=== PATIENT | female | born 1975 | race Caucasian/White ===

== ENCOUNTER 2016-08-07 20:28 | Emergency (ER) | payer BC ==
[2016-08-07 20:37] VITALS: BMI 29.8
--- NOTE | 2016-08-07 21:28 | PDOC ---
History of Present Illness - General History Source: Patient Exam Limitations: No Limitations - History of Present Illness Initial Comments: 08/07/16 21:35 The patient is a 41 year old female with significant past medical history of diabetes who presents to the ED for 4 days of diarrhea. Patient reports having persistent nonbloody diarrhea and today she had about 15 episodes of diarrhea. She also reports diffuse abdominal cramping and nausea, but no vomiting. States having decreased appetite. Denies any sick contacts or recent travels. The patient denies fever, chills, cough, SOB, chest pain, and palpitations. The patient denies dysuria, hematuria, urgency, and frequency. Allergies: codeine Social History: No alcohol, tobacco, or drug use reported. Past Surgical History: tubal ligation PCP: Dr. Artemio Crespo <Wanda Pena - Last Filed: 08/07/16 21:35> - General History Source: Patient <Radhames Sanford - Last Filed: 08/07/16 23:39> - General Chief Complaint: Diarrhea Stated Complaint: STOMACH PAIN,DIARRHEA Time Seen by Provider: 08/07/16 21:28 Past History <Wanda Pena - Last Filed: 08/07/16 21:35> - Past Medical History Diabetes: Yes - Surgical History Abdominal Surgery: Yes (tubilagation) - Psycho/Social/Smoking Cessation Hx Anxiety: No Suicidal Ideation: No Smoking Status: Yes Smoking History: Former smoker Have you smoked in the past 12 months: Yes Number of Cigarettes Smoked Daily: 20 If you are a former smoker, when did you quit?: 12 days ago Information on smoking cessation initiated: No Hx Alcohol Use: No Substance Use Type: None <Radhames Sanford - Last Filed: 08/07/16 23:39> - Past Medical History Allergies/Adverse Reactions: Allergies Allergy/AdvReac Type Severity Reaction Status Date / Time codeine Allergy Verified 08/07/16 20:36 Home Medications: Ambulatory Orders Metformin HCl [Glucophage -] 500 mg PO BID 12/18/12 Janumet Xr 50-500 mg Tablet 500 mg PO BID 08/07/16 Ondansetron [Zofran *Odt*] 4 mg SL TID #30 od.tablet 08/07/16 Review of Systems - Review of Systems Able to Perform ROS?: Yes Comments:: 08/07/16 21:40 CONSTITUTIONAL: +decreased appetite Absent: fever, no chills, no fatigue EYES: Absent: visual changes ENT: Absent: ear pain, no sore throat CARDIOVASCULAR: Absent: chest pain, no palpitations RESPIRATORY: Absent: cough, no SOB GI: +abdominal cramping, nausea Absent: no vomiting, no constipation GENITOURINARY: Absent: dysuria, no frequency, no hematuria MUSCULOSKELETAL: Absent: back pain, no arthralgia, no myalgia SKIN: Absent: rash NEURO: Absent: headache <Wanda Pena - Last Filed: 08/07/16 21:35> *Physical Exam - Vital Signs Last Vital Signs Temp Pulse Resp BP Pulse Ox 98.2 F 86 18 128/78 97 08/07/16 20:34 08/07/16 20:34 08/07/16 20:34 08/07/16 20:34 08/07/16 20:34 - Physical Exam Comments: 08/07/16 21:41 GENERAL: Well-appearing, well-nourished. No apparent distress. HEENT: Normocephalic, atraumatic. PERRL, EOM intact. Moist oral mucosa. CARDIOVASCULAR: Normal S1, S2. Regular rate and rhythm. PULMONARY: Clear to auscultation bilaterally. ABDOMEN: Soft, non-distended, non-tender. No rebound or guarding. Hyperactive bowel sounds. EXTREMITIES: Normal ROM in all four extremities. No gross deformities. SKIN: Warm, dry. No rash NEUROLOGICAL: No focal neurological deficits. <JeanWanda - Last Filed: 08/07/16 21:35> - Vital Signs Last Vital Signs Temp Pulse Resp BP Pulse Ox 98.2 F 86 18 128/78 97 08/07/16 20:34 08/07/16 20:34 08/07/16 20:34 08/07/16 20:34 08/07/16 20:34 <Radhames Sanford - Last Filed: 08/07/16 23:39> ED Treatment Course - LABORATORY CBC & Chemistry Diagram: 08/07/16 21:46 08/07/16 21:40 <Radhames Sanford - Last Filed: 08/07/16 23:39> Medical Decision Making - Medical Decision Making 08/07/16 23:36 Dr. Sanford: The scribe's documentation has been prepared under my direction and personally reviewed by me in its entirery. I confirm that the note above accurately reflects all work, treatment, procedures, and medical decision making performed by me. Patient feels better after IVF hydration. Pt states the diarrhea has decreased. Will discharge. Pt encouraged to drink plenty of fluids. <Radhames Sanford - Last Filed: 08/07/16 23:39> *DC/Admit/Observation/Transfer - Attestations Scribe Attestion: 08/07/16 21:41 Documentation prepared by Wanda Pena, acting as medical coding auditor for Radhames Sanford MD/DO. <Wanda Pena - Last Filed: 08/07/16 21:35> - Discharge Dispostion Admit: No <Radhames Sanford - Last Filed: 08/07/16 23:39> Diagnosis at time of Disposition: Diarrhea Qualifiers: Diarrhea type: unspecified type Qualified Code(s): R19.7 - Diarrhea, unspecified - Discharge Dispostion Disposition: HOME Condition at time of disposition: Improved - Referrals Referrals: Artemio Cagle MD [Primary Care Provider] - - Patient Instructions Printed Discharge Instructions: Diarrhea Additional Instructions: drink plenty of fluids. Eat soft diet and increase as tolerated.
[2016-08-07] MEDS ORDERED: SODIUM CHLORIDE 1,000 ML IV STA ×2 (21:29)
[2016-08-07 21:49] LABS: BASOPHIL 1.4 % (0-2.0); EOSINOPHIL 3.1 % (0-4.5); MCH 29.7 pg (25.7-33.7); MCHC 33.5 g/dl (32.0-36.0); MEAN CELL VOLUME 88.6 fl (80-96); MEAN PLT VOLUME 10.5 fl (7.5-11.1); PLATELET COUNT 181 K/MM3 (134-434); RDW 12.6 % (11.6-15.6); WHITE BLOOD COUNT 8.3 K/mm3 (4.0-10.0)
[2016-08-07 22:52] LABS: ALBUMIN 3.2 g/dl (3.4-5.0); ALK PHOS 64 U/L (45-117); AMYLASE 23 U/L (25-115); ANION GAP 10 (8-16); BILIRUBIN,TOTAL 0.2 mg/dL (0.2-1.0); CALCIUM 8.7 mg/dL (8.5-10.1); CO2 25 mmol/L (21-32); CREATININE 0.6 mg/dL (0.55-1.02); GLUCOSE,RANDOM 284 mg/dL (74-106); SGOT/AST 13 U/L (15-37); SGPT/ALT 28 U/L (12-78); TOT PROT 6.6 g/dl (6.4-8.2)
[2016-08-07 23:10] LABS: URINE APPEARANCE CLEAR; URINE BILIRUBIN NEGATIVE (NEGATIVE); URINE BLOOD NEGATIVE (NEGATIVE); URINE COLOR LTYELLOW; URINE GLUCOSE (UA) 3+ (NEGATIVE); URINE KETONE NEGATIVE (NEGATIVE); URINE LEUK ESTERASE NEGATIVE (NEGATIVE); URINE NITRITE NEGATIVE (NEGATIVE); URINE PROTEIN NEGATIVE (NEGATIVE); URINE UROBILINOGEN NEGATIVE E.U./dl (0.2-1.0)
[2016-08-07 23:38] VITALS: TEMP 98.3
[2016-08-07 23:48] LABS: ACETONE SERUM NEGATIVE (NEGATIVE)
[2016-08-07 23:52] VITALS: BP 109/64; PULSE 69
== END 2016-08-07 23:52 | disposition home or self-care (01) ==
LOC: JER 20:28
PROC: 3E0337Z Introduction of Electrolytic and Water Balance Substance into Peripheral Vein, Percutaneous Approach (ICD-10-PCS; principal; 2016-08-07)
DX: R19.7 Diarrhea, unspecified (principal); Z87.891 Personal history of nicotine dependence
CPT/HCPCS: 36415; 80053; 81003; 82009; 82150; 83690; 83735; 85025; 99283-25

== ENCOUNTER 2016-08-08 10:56 | Emergency (ER) | payer BC ==
[2016-08-08 11:04] VITALS: TEMP 98.1; BMI 29.8
--- NOTE | 2016-08-08 11:48 | PDOC ---
History of Present Illness - General History Source: Patient Exam Limitations: No Limitations - History of Present Illness Initial Comments: 08/08/16 14:33 The patient is a 41 year old female with significant past medical history of diabetes who presents to the ED for left sided abdominal pain, nausea and diarrhea for 5 days. Patient was seen in [facility] yesterday and had blood work done that was normal. Patient states that she has been experiencing the following symptoms today and called her PCP to schedule an appointment and was told to present to the ED and obtain a CT. Patient states that she has been experiencing diarrhea for 5 days which initially was black then yellow and now yellow and watery in color. Patient reports 1-2 episodes of vomiting throughout the 5 days. Patient reports nausea and dizziness. Patient reports mid abdomen pain radiating to the LLQ that is constant with no alleviating or exacerbating factors. She denies relief with bowel movements. Patient reports going to a family BBQ last friday after which she developed symptoms. LMP now. No recent travel or sick contact No abx use The patient denies fever, chills, cough, SOB, chest pain, and palpitations. The patient denies dysuria, hematuria, urgency, and frequency. Allergies: codeine Social History: No alcohol, tobacco, or drug use reported. Past Surgical History: tubal ligation PCP: Dr. Artemio Payne <Inés Lopez - Last Filed: 08/08/16 14:33> <Jalen Roberson - Last Filed: 08/08/16 17:52> - General Chief Complaint: Pain Stated Complaint: PAIN Time Seen by Provider: 08/08/16 11:21 Past History <Inés Lopez - Last Filed: 08/08/16 14:33> - Past Medical History Diabetes: Yes - Surgical History Abdominal Surgery: Yes (tubilagation) - Psycho/Social/Smoking Cessation Hx Anxiety: No Suicidal Ideation: No Smoking Status: Yes Smoking History: Current every day smoker Have you smoked in the past 12 months: Yes Number of Cigarettes Smoked Daily: 20 If you are a former smoker, when did you quit?: 12 days ago Information on smoking cessation initiated: Yes 'Breaking Loose' booklet given: 08/08/16 Hx Alcohol Use: No Drug/Substance Use Hx: No Substance Use Type: None <Karol,Jalen - Last Filed: 08/08/16 17:52> - Past Medical History Allergies/Adverse Reactions: Allergies Allergy/AdvReac Type Severity Reaction Status Date / Time codeine Allergy Verified 08/08/16 11:03 Home Medications: Ambulatory Orders Metformin HCl [Glucophage -] 500 mg PO BID 12/18/12 Janumet Xr 50-500 mg Tablet 500 mg PO BID 08/07/16 Ondansetron [Zofran *Odt*] 4 mg SL TID #30 od.tablet 08/07/16 Ciprofloxacin [Cipro -] 500 mg PO Q12H #10 tablet 08/08/16 Metronidazole [Flagyl -] 500 mg PO TID #21 tablet 08/08/16 Review of Systems - Review of Systems Able to Perform ROS?: Yes Comments:: 08/08/16 14:33 CONSTITUTIONAL: No reported: Fever, Chills, Diaphoresis, Generalized Weakness, Malaise, Loss of Appetite HEENT: No reported: Rhinorrhea, Nasal Congestion, Throat Pain, Throat Swelling, Difficulty Swallowing, Mouth Swelling, Ear Pain, Eye Pain, Visual Changes CARDIOVASCULAR: No reported: Chest Pain, Syncope, Palpitations, Irregular Heart Rate, Lightheadedness, Peripheral Edema RESPIRATORY: No reported: Cough, Shortness of Breath, SOB with Exertion, Orthopnea, Wheezing , Stridor, Hemoptysis GASTROINTESTINAL: Reported: abdominal pain, nausea, diarrhea No reported: Abdominal Distension,Vomiting,Constipation, Melena, Hematochezia GENITOURINARY: No reported: Dysuria, Frequency, Urgency, Hesitancy, Flank Pain, Genital Pain MUSCULOSKELETAL: No reported: Myalgia, Arthralgia, Joint Swelling, Back pain, Neck Pain SKIN: No reported: Rash, Itching, Pallor HEMEATOLOGIC/IMMUNOLOGIC: No reported: Easy Bleeding, Easy Bruising, Lymphadenopathy, Frequent infections ENDOCRINE: No reported: Unexplained Weight Gain, Unexplained Weight Loss, Heat Intolerance , Cold Intolerance NEUROLOGIC: No reported: Headache, Focal Weakness, Paresthesias, Vertigo, Lightheadedness, Unsteady Gait, Seizure, Mental Status Changes, Incontinence PSYCHIATRIC: No reported: Anxiety, Depression <Inés Lopez - Last Filed: 08/08/16 14:33> *Physical Exam - Vital Signs Last Vital Signs Temp Pulse Resp BP Pulse Ox 98.1 F 72 18 124/69 98 08/08/16 11:02 08/08/16 11:02 08/08/16 11:02 08/08/16 11:02 08/08/16 11:02 - Physical Exam Comments: 08/08/16 14:33 GENERAL: The patient is awake, alert, and fully oriented, Nontoxic - in no acute distress. HEAD: Normocephalic, atraumatic. EYES: extraocular movements intact, sclera anicteric, conjunctiva clear. ENT: Normal voice, Moist mucous membranes. NECK: Normal range of motion, supple LUNGS: Breath sounds equal, clear to auscultation bilaterally. No wheezes, no rhonchi, no rales. HEART: Regular rate and rhythm, without murmur, rub or gallop. ABDOMEN: +Milf LLQ tendenrness. Soft, normoactive bowel sounds. No guarding, no rebound.No CVA tenderness EXTREMITIES: Normal range of motion, no edema. No clubbing or cyanosis. No cords, erythema, or tenderness. NEUROLOGICAL: No facial assymetry, Normal speech, PSYCH: Normal mood, normal affect. SKIN: Warm, Dry, normal turgor <Inés Lopez - Last Filed: 08/08/16 14:33> - Vital Signs Last Vital Signs Temp Pulse Resp BP Pulse Ox 98.1 F 72 18 124/69 98 08/08/16 11:02 08/08/16 11:02 08/08/16 11:02 08/08/16 11:02 08/08/16 11:02 <Jalen Roberson - Last Filed: 08/08/16 17:52> ED Treatment Course - LABORATORY CBC & Chemistry Diagram: 08/08/16 11:19 08/08/16 11:46 - ADDITIONAL ORDERS Additional order review: Laboratory Results 08/08/16 08/08/16 08/08/16 11:46 11:19 11:19 Sodium 141 Potassium 3.8 Chloride 105 Carbon Dioxide 25 Anion Gap 11 BUN 6 L D Creatinine 0.6 Creat Clearance w eGFR > 60 Random Glucose 220 H D Calcium 8.5 Magnesium 2.0 Total Bilirubin 0.4 D AST 12 L ALT 30 Alkaline Phosphatase 54 Total Protein 6.1 L Albumin 3.0 L Urine Color Ltyellow Urine Appearance Clear Urine pH 5.0 Urine Protein Negative Urine Glucose (UA) 3+ H Urine Ketones Negative Urine Blood 1+ H Urine Nitrite Negative Urine Bilirubin Negative Urine Urobilinogen Negative Ur Leukocyte Esterase Negative Urine RBC <1 Urine WBC 2 Ur Epithelial Cells Rare Hyaline Casts 3 Urine Mucus Few Urine HCG, Qual Negative 08/08/16 11:19 RBC 4.37 MCV 88.9 MCHC 33.8 RDW 12.6 MPV 10.2 Neutrophils % 60.5 Lymphocytes % 26.1 Monocytes % 10.4 H Eosinophils % 2.3 Basophils % 0.7 <Inés Lopez - Last Filed: 08/08/16 14:33> - LABORATORY CBC & Chemistry Diagram: 08/08/16 11:19 08/08/16 11:46 <Jalen Roberson - Last Filed: 08/08/16 17:52> Medical Decision Making - Medical Decision Making 08/08/16 13:16 41y F no pmhx presents with complaint of LLQ pain and diarrhea x 5 days, diarrhea is watery innature, no associated fevers, but pt endorses intermittent nausea and 2-3 episodes of nbnb vomiting. on exam pt had mild LLQ abd. will obtain blodo work and CT will reassess A portion of this note was documented by scribe services under my direction. I have reviewed the details of the note, within reason, and agree with the documentation with the following case summary and management plan written by me 08/08/16 17:[address] noted for enterolitis labs reviewed unreamrakble will dc pt with cipro flagyl will have pt fu with pmd return precautions were discussed I discussed the physical exam findings, ancillary test results and final diagnoses with the patient. I answered all of the patient's questions. The patient was satisfied with the care received and felt comfortable with the discharge plan and treatment plan. The patient will call their primary care physician within 24 hours to arrange follow-up and will return to the Emergency Department with any new, persistent or worsening symptoms. <Jalen Roberson - Last Filed: 08/08/16 17:52> *DC/Admit/Observation/Transfer - Attestations Scribe Attestion: 08/08/16 14:34 Documentation prepared by GAGAN Beckwith, acting as medical service representative for Jalen Roberson MD. <Inés Lopez - Last Filed: 08/08/16 14:33> - Discharge Dispostion Admit: No <Jalen Roberson - Last Filed: 08/08/16 17:52> Diagnosis at time of Disposition: Enterocolitis - Discharge Dispostion Disposition: HOME Condition at time of disposition: Improved - Prescriptions Prescriptions: Ciprofloxacin [Cipro -] 500 mg PO Q12H #10 tablet Metronidazole [Flagyl -] 500 mg PO TID #21 tablet - Referrals Referrals: Artemio Cagle MD [Primary Care Provider] - - Patient Instructions Printed Discharge Instructions: DI for Colitis Additional Instructions: Return to the emergency department immediately with ANY new, persistent or worsening symptoms. You MUST call and follow up with your doctor tomorrow for further evaluation of your symptoms. Results were discussed with you. Please make sure your doctor reviews the results of your emergency evaluation. If you had any xrays during your visit, it was read preliminarily by myself, a Radiologist will review it and if there are any additional findings we will call you. Print Language: BRUNEIAN
[2016-08-08 12:09] LABS: BASOPHIL 0.7 % (0-2.0); EOSINOPHIL 2.3 % (0-4.5); MCHC 33.8 g/dl (32.0-36.0); MEAN CELL VOLUME 88.9 fl (80-96); MEAN PLT VOLUME 10.2 fl (7.5-11.1); NEUTROPHILS 60.5 % (42.8-82.8); PLATELET COUNT 169 K/MM3 (134-434); RDW 12.6 % (11.6-15.6); WHITE BLOOD COUNT 7.7 K/mm3 (4.0-10.0)
[2016-08-08 12:18] LABS: URINE APPEARANCE CLEAR; URINE BILIRUBIN NEGATIVE (NEGATIVE); URINE COLOR LTYELLOW; URINE GLUCOSE (UA) 3+ (NEGATIVE); URINE KETONE NEGATIVE (NEGATIVE); URINE LEUK ESTERASE NEGATIVE (NEGATIVE); URINE NITRITE NEGATIVE (NEGATIVE); URINE PROTEIN NEGATIVE (NEGATIVE); URINE UROBILINOGEN NEGATIVE E.U./dl (0.2-1.0)
[2016-08-08 12:22] LABS: URINE BLOOD 1+ (NEGATIVE)
[2016-08-08 12:24] LABS: URINE HYALINE CAST 3 /lpf; URINE MUCUS FEW; URINE RBC <1 /hpf (0-3); URINE WBC 2 /hpf (3-5)
[2016-08-08 12:40] LABS: ANION GAP 11 (8-16); CALCIUM 8.5 mg/dL (8.5-10.1); CO2 25 mmol/L (21-32); CREATININE 0.6 mg/dL (0.55-1.02); GLUCOSE,RANDOM 220 mg/dL (74-106); SGOT/AST 12 U/L (15-37); SGPT/ALT 30 U/L (12-78)
[2016-08-08 12:42] LABS: ALK PHOS 54 U/L (45-117); BILIRUBIN,TOTAL 0.4 mg/dL (0.2-1.0); TOT PROT 6.1 g/dl (6.4-8.2)
[2016-08-08 17:57] VITALS: BP 122/70; PULSE 89
== END 2016-08-08 17:59 | disposition home or self-care (01) ==
LOC: JER 10:56
DX: K52.9 Noninfective gastroenteritis and colitis, unspecified (principal); E11.9 Type 2 diabetes mellitus without complications; Z87.891 Personal history of nicotine dependence
CPT/HCPCS: 36415; 74177-TC; 80053; 81003; 81015; 83735; 84703; 85025; 99283-25

== ENCOUNTER 2018-03-16 13:51 | Emergency (ER) | payer BC | END 2018-03-16 21:38 | disposition home or self-care (01) | LOC: JER 13:51 ==

== ENCOUNTER 2018-06-16 08:31 | Emergency (ER) | payer OTHER, BC ==
[2018-06-16 08:36] VITALS: BP 133/90; PULSE 92; TEMP 97.7; BMI 28.1
[2018-06-16] MEDS ORDERED: KETOROLAC TROMETHAMINE 60 MG/2 ML VIAL IM ONE (09:20)
[2018-06-16] MEDS ORDERED: KETOROLAC TROMETHAMINE 60 MG/2 ML VIAL ONE (09:24)
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
== END 2018-06-16 10:58 | disposition home or self-care (01) ==
LOC: JERFT 08:31
PROC: 3E0233Z Introduction of Anti-inflammatory into Muscle, Percutaneous Approach (ICD-10-PCS; principal; 2018-06-16)
DX: M25.512 Pain in left shoulder (principal); V78.6XXA Passenger on bus injured in noncollision transport accident in traffic accident, initial encounter; Y92.414 Local residential or business street as the place of occurrence of the external cause; Y93.89 Activity, other specified; Y99.0 Civilian activity done for income or pay
CPT/HCPCS: 71046-TC-FY; 71101-TC-LT-FY; 73030-TC-LT-FY; 99281-25

== ENCOUNTER 2020-11-16 14:59 | Emergency (ER) | payer BC ==
[2020-11-16 15:21] VITALS: BP 110/68; PULSE 92; TEMP 98.5; BMI 26.4
[2020-11-16] MEDS ORDERED: SODIUM CHLORIDE 0.9% 500 ML INFUS.BAG IV ONE (15:27)
[2020-11-16] MEDS ORDERED: CASIRIVIMAB/IMDEVIMAB 10 ML in SODIUM CHLORIDE 100 ML IVPB ONE (15:43)
[2020-11-16] MEDS ORDERED: ACETAMINOPHEN 500 MG TABLET (FP) PO ONE (17:37)
== END 2020-11-16 18:45 | disposition home or self-care (01) ==
LOC: JCOVINFU 14:59
PROC: 3E033GC Introduction of Other Therapeutic Substance into Peripheral Vein, Percutaneous Approach (ICD-10-PCS; principal; 2020-11-16)
DX: U07.1 COVID-19 (principal)
CPT/HCPCS: 99284-25; Q0240

== ENCOUNTER 2021-01-22 05:28 | Day surgery (SDC) | payer BC ==
[2021-01-17 16:50] VITALS: BMI 26.6
[2021-01-22 09:53] VITALS: TEMP 97
[2021-01-22 10:46] VITALS: BP 111/62; PULSE 71
== END 2021-01-22 11:43 | disposition home or self-care (01) ==
LOC: JASU-ENDO 05:28
PROVIDERS: ATTEND Internal Medicine Gastroenterology
PROC: 0DB98ZX Excision of Duodenum, Via Natural or Artificial Opening Endoscopic, Diagnostic (ICD-10-PCS; 2021-01-22)
PROC: 0DB68ZX Excision of Stomach, Via Natural or Artificial Opening Endoscopic, Diagnostic (ICD-10-PCS; 2021-01-22)
PROC: 0DB38ZX Excision of Lower Esophagus, Via Natural or Artificial Opening Endoscopic, Diagnostic (ICD-10-PCS; 2021-01-22)
PROC: 0DBP8ZX Excision of Rectum, Via Natural or Artificial Opening Endoscopic, Diagnostic (ICD-10-PCS; principal; 2021-01-22 09:00)
DX: Z12.11 Encounter for screening for malignant neoplasm of colon (principal); Z86.010 Personal history of colon polyps; K62.1 Rectal polyp; K29.50 Unspecified chronic gastritis without bleeding; E11.9 Type 2 diabetes mellitus without complications; Z79.84 Long term (current) use of oral hypoglycemic drugs
CPT/HCPCS: 81025; 88305-TC; 88342-TC